=== PATIENT | male | born 1980 | race Caucasian/White ===

== ENCOUNTER 2022-09-13 12:34 | Emergency (ER) | payer BC, SELFPAY ==
--- NOTE | ~2022-09-13 | XR_ITS ---
Right Hand Technique: PA, oblique, and lateral views were obtained. Clinical History: Saw injury Findings: No acute fracture or dislocation is seen. Osseous alignment is anatomic. Joint spaces are p reserved. Soft tissues are unremarkable. Impression: Unremarkable right hand. Reviewed, dictated and finalized at location . [employer] [employer] Impression: Unremarkable right hand.
[2022-09-13 12:40] VITALS: BP 148/96; PULSE 73; RESP 20; TEMP 36.1; O2SAT 95
--- NOTE | 2022-09-13 14:44 | ED.UPPEXIN ---
HPI - Extremity Injury (Upper) General Chief Complaint: Extremity Injury, Upper Stated Complaint: table saw to hand Time Seen by Provider: 09/13/22 12:42 Source: patient Mode of arrival: ambulatory Limitations: no limitations History of Present Illness HPI narrative: Patient is a 42 y/o male who presents to the ED with c/o lacerations to his right second third and fourth fingers. Patient reports he was cutting wood with a table saw today and took the blade guard off. He slipped while pushing a board through and sustained lacerations to his right second, third, fourth digits. Bleeding controlled upon my evaluation. Tetanus status up-to-date. No other injuries. Good range of motion. No numbness, tingling. Related Data Allergies Allergy/AdvReac Type Severity Reaction Status Date / Time No Known Allergies Allergy Verified 09/13/22 12:52 Review of Systems Review of Systems: CONSTITUTIONAL: Denies fever, chills, or sweats. GASTROINTESTINAL: Denies nausea, vomiting. SKIN: See HPI. MUSCULOSKELETAL: See HPI. NEUROLOGIC: Denies tingling, numbness, or weakness. All systems reviewed & are unremarkable except as noted in HPI and below [facility] Past Medical History Medical History (Updated 09/13/22 @ 14:56 by Carmen Montgomery PA-C) No pertinent past medical history Surgical History Surgical History (Updated 09/13/22 @ 14:48 by Carmen Montgomery PA-C) No pertinent past surgical history Social History Social History (Updated 09/13/22 @ 14:48 by Carmen Montgomery PA-C) Smoking status: Never smoker Exam Narrative: GENERAL: Well appearing, obese, non-toxic, in no acute distress. HEAD: Normocephalic, atraumatic. NECK: Supple. No adenopathy, no masses. RESPIRATORY: Airway patent, respirations nonlabored. CARDIOVASCULAR: Regular rate and rhythm without murmurs, rubs, or gallops. Radial pulses 2+ and equal bilaterally. MUSCULOSKELETAL: Full range of motion of right fingers, distal sensation intact. R second digit with oblique superficial abrasion/skin avulsion to the distal phalange. No deeper lacerations. R 3rd digit with oblique area of deeper laceration to medial surface of middle phalange, extends into more superficial abrasions distally. No nail involvement of R 2nd or 3rd digits. R 4th digit with laceration to distal finger tip, extending through medial distal corner of nail. Distal corner of nail avulsed off, but nail bed intact, no lacerations through nailbed. Cuticle of nail intact. SKIN: Warm, dry, normal color. No rashes. NEURO: A&O X3. Speech clear. Cranial nerves II-XII grossly intact. Steady gait. No ataxic movements. PSYCHIATRIC: Appropriate mood and affect. Normal interaction. Course Vital Signs Vital signs: Vital Signs Temperature 97 F L 09/13/22 12:40 Pulse Rate 73 09/13/22 12:40 Respiratory Rate 20 09/13/22 12:40 Blood Pressure 148/96 H 09/13/22 12:40 Pulse Oximetry 95 09/13/22 12:40 Oxygen Delivery Room Air 09/13/22 12:40 Temperature 97 F L 09/13/22 12:40 Pulse Rate 73 09/13/22 12:40 Respiratory Rate 20 09/13/22 12:40 Blood Pressure 148/96 H 09/13/22 12:40 Pulse Oximetry 95 09/13/22 12:40 Oxygen Delivery Room Air 09/13/22 12:40 Procedures Laceration Laceration 1: Date: 09/13/22 Time: 14:35 Site: hand Side (If applicable): right (3rd digit) Size (cm): 1.5 Description: linear Depth: simple, single layer Local Anesthetic: other anesthetic (digital block) Pre-repair: wound explored and irrigated ====== Skin Level ====== Skin layer closed with: nylon Size (cm): 5-0 Number of sutures: 3 Technique: simple, interrupted ====== Subcutaneous Layer ====== ====== Muscle Layer ====== ====== Tendon Layer ====== Laceration 2: Date: 09/13/22 Time: 14:40 Site: hand Side (If applicable): right (4th digit) Size (cm)
== END 2022-09-13 15:16 | disposition home or self-care (01) ==
PROVIDERS: Emergency Provider Physician Assistant
DX: S61.212A Laceration without foreign body of right middle finger without damage to nail, initial encounter (principal); S61.214A Laceration without foreign body of right ring finger without damage to nail, initial encounter; W31.2XXA Contact with powered woodworking and forming machines, initial encounter
CPT/HCPCS: 12001; 73130; 99283